=== PATIENT | male | born 1985 | race Caucasian/White ===

== ENCOUNTER 2016-04-25 08:48 | Emergency (ER) | payer OTHER ==
[~2016-04-25] VITALS: Ht 167.6 cm; Wt 74.6 kg
[2016-04-25 09:09] LABS: microscopic required? NO
[2016-04-25 09:20] LABS: BASOPHIL % 0.8 % (0-2); PLATELET COUNT 303 x10^3mcL (130-400); RED CELL DISTRIBUTION WIDTH 12.5 % (11.5-14.5)
[2016-04-25 09:21] LABS: urine erythrocyte NEGATIVE (NEGATIVE)
[2016-04-25 09:28] LABS: CALCIUM 9.5 mg/dL (8.5-10.1); CARBON DIOXIDE 26.6 mmol/L (21-32); CHLORIDE SERUM 95 mmol/L (98-107); CREATININE SERUM 0.7 mg/dL (0.7-1.3); GFR1 > 60 mL/min; GLUCOSE SERUM 215 mg/dL (74-106); POTASSIUM SERUM 3.5 mmol/L (3.5-5.1); SODIUM SERUM 133 mmol/L (136-145)
[2016-04-25 09:33] LABS: ALBUMIN 4.4 g/dL (3.4-5.0); ALKALINE PHOSPHATASE 74 U/L (46-116); ALT/SGPT 24 U/L (16-63); AMYLASE 53 U/L (25-115); AST/SGOT 8 U/L (15-37); LIPASE 154 IU/L (73-393)
[2016-04-25 09:34] LABS: TOTAL PROTEIN, SERUM 8.8 g/dL (6.4-8.2)
[2016-04-25 15:27] VITALS: BP 132/86
== END 2016-04-25 15:27 | disposition home or self-care (01) ==
LOC: ED 08:48
DX: R10.31 Right lower quadrant pain (principal); E11.9 Type 2 diabetes mellitus without complications; R10.32 Left lower quadrant pain; Z79.899 Other long term (current) drug therapy
CPT/HCPCS: 82962; 83880; J1885; J2405; J3010; J7030; Q0092

== ENCOUNTER 2016-06-06 17:38 | Emergency (ER) | payer OTHER ==
[2016-06-06 18:34] LABS: BASOPHIL % 0.5 % (0-2); PLATELET COUNT 393 x10^3mcL (130-400); RED CELL DISTRIBUTION WIDTH 12.8 % (11.5-14.5)
[2016-06-06 18:50] LABS: CALCIUM 9.1 mg/dL (8.5-10.1); CARBON DIOXIDE 24.7 mmol/L (21-32); CHLORIDE SERUM 95 mmol/L (98-107); CREATININE SERUM 0.6 mg/dL (0.7-1.3); GFR1 > 60 mL/min; GLUCOSE SERUM 117 mg/dL (74-106); POTASSIUM SERUM 3.7 mmol/L (3.5-5.1); SODIUM SERUM 131 mmol/L (136-145)
[2016-06-06 18:57] LABS: ALBUMIN 3.8 g/dL (3.4-5.0); ALKALINE PHOSPHATASE 63 U/L (46-116); ALT/SGPT 28 U/L (16-63); AST/SGOT 14 U/L (15-37); BILIRUBIN TOTAL 0.41 mg/dL (0.20-1.00); TOTAL PROTEIN, SERUM 7.4 g/dL (6.4-8.2)
[2016-06-06 19:11] LABS: CK-MB < 0.5 ng/mL (0-3.6); CREATINE KINASE 24 U/L (39-308)
[2016-06-06 19:21] LABS: T3 TOTAL 1.13 ng/mL
[2016-06-06 19:26] LABS: FREE T4 1.55 ng/dL (0.76-1.46); FREE THYROXINE INDEX 3.9 ug/dL (1.4-4.5); T4(THYROXINE) 10.5 ug/dL (4.7-13.3)
[2016-06-06 20:17] LABS: microscopic required? NO
[2016-06-06 20:43] LABS: urine erythrocyte NEGATIVE (NEGATIVE)
[2016-06-06 20:57] LABS: AMPHETAMINE QUAL UR NONE DETECTED (NEG <=1000)
[2016-06-06 21:03] LABS: C REACTIVE PROTEIN < 0.2 mg/dL (<=0.9)
[2016-06-06 21:06] LABS: ERYTHROCYTE SED RATE 6 mm/hr (0-15)
[2016-06-06 21:43] VITALS: BP 145/102
== END 2016-06-06 21:43 | disposition home or self-care (01) ==
LOC: ED 17:38
PROVIDERS: Specialist
DX: R10.32 Left lower quadrant pain (principal); R10.31 Right lower quadrant pain; F41.9 Anxiety disorder, unspecified; R63.0 Anorexia; R53.1 Weakness; E11.9 Type 2 diabetes mellitus without complications; M79.672 Pain in left foot; M79.671 Pain in right foot
CPT/HCPCS: 36600; 80307; 82962; 83880; 84439; G0480; J1885; J2405; J3010; J7030